=== PATIENT | male | born 1980 | race Caucasian/White ===

== ENCOUNTER 2016-11-26 17:31 | Emergency (ER) | payer OTHER ==
[~2016-11-26] VITALS: Wt 90.7 kg
[~2016-11-26 17:31] MED LIST: 'carisoprodol350 MG PO; ALBUTEROL0.09 MG/A2 INH; AMOXIL500 MG PO; ANAPROX DS550 MG PO; AUGMENTIN 875 M1 TAB PO; BACTRIM DS 8001 TA1 PO; BACTRIM DS 8001 TAB PO; BIAXIN500 MG PO; CELEXA20 MG PO; CIPROFLOXACIN500 MG PO; CLARITIN-D 24 H1 TAB PO; CLARITIN10 MG PO; CLEOCIN HCL150 MG PO; CLEOCIN150 MG PO; CLINDAMYCIN HC300 MG PO; CLINDAMYCIN150 MG PO; CLINDAMYCIN300 MG PO; CYMBALTA60 MG PO; DARVOCET N 1001 TAB PO; DAYPRO600 M1 PO; DICLOFENAC POTA50 MG PO; EES400 MG PO; FLEXERIL10 MG PO; FLOMAX0.4 MG PO; FLONASE0.05 MG/AC NS; HYDROCOD-HOMAT1 EACH PO; HYDROCODONE BIT1 T11 PO; K-Dur 20MEQ20 MEQ PO; KEFLEX500 MG PO; LEVAQUIN750 MG PO; LOMOTIL 0.025 M1 TA1 PO; MEDROL DOSEPAK4 MG PO; MOBIC7.5 MG PO; MOTRIN600 MG PO; MOTRIN800 MG PO; Motrin,Rufen800 MG PO; NAPROSYN500 MG PO; NORCO 325 MG-51 TAB PO; NORFLEX100 MG PO; PEPCID AC10 M2 PO; PEPCID20 MG PO; PERCOCET 325 MG1 TA2 PO; PHENERGAN W/ DE30 ML PO; PREDNICOT20 MG PO; PREDNISONE10 MG PO; PREDNISONE20 M1 PO; PREVACID30 M2 PO; PRILOSEC10 MG PO; PROVENTIL0.09 MG/AC IH; Peridex 473 ML473 ML PO; SINGULAIR10 MG PO; SOMA PO; SOMA350 MG PO; TESSALON PERLE100 M1 PO; TESSALON PERLE100 MG PO; TOBREX OPHTH S2.5 ML OPH; TRAMADOL HCL50 MG PO; TRIMOX500 MG PO; ULTRAM50 MG PO; VENTOLIN H0.09 MG/AC INH; VIBRAMYCIN100 MG PO; VICO10300 PO; VICO75300 PO; VICODIN 5-3001 EACH PO; VICODIN 5/500 505 MG PO; VOLTAREN50 M1 PO; ZANTAC 150150 MG PO; ZITHROMAX Z PA250 MG PO; ZITHROMAX250 MG PO; ZOFRAN ODT4 MG SL; ZOFRAN4 MG PO; ZYRTEC10 M3 PO; ZYRTEC10 MG PO; Zofran4 MG PO
== END 2016-11-26 18:27 | disposition home or self-care (01) ==
LOC: ED 17:31
DX: G89.29 Other chronic pain (principal); M25.511 Pain in right shoulder; Z88.0 Allergy status to penicillin; Z88.1 Allergy status to other antibiotic agents

== ENCOUNTER 2016-12-11 18:54 | Emergency (ER) | payer OTHER ==
[~2016-12-11] VITALS: Wt 93.0 kg
== END 2016-12-11 19:30 | disposition home or self-care (01) ==
LOC: ED 18:54
DX: G89.29 Other chronic pain (principal); M25.511 Pain in right shoulder; F17.200 Nicotine dependence, unspecified, uncomplicated; Z98.890 Other specified postprocedural states; Z90.89 Acquired absence of other organs; Z88.0 Allergy status to penicillin

== ENCOUNTER 2017-04-10 17:14 | Emergency (ER) | payer OTHER ==
[~2017-04-10] VITALS: Ht 182.8 cm; Wt 95.3 kg
[2017-04-10] MEDS ORDERED: Bactroban Oint22 GM T (17:24)
[2017-04-10] MEDS ORDERED: CLINDAMYCIN150 MG PO (17:24)
== END 2017-04-10 18:27 | disposition home or self-care (01) ==
LOC: ED 17:14
DX: L02.01 Cutaneous abscess of face (principal); R03.0 Elevated blood-pressure reading, without diagnosis of hypertension; Z88.0 Allergy status to penicillin; Z79.899 Other long term (current) drug therapy

== ENCOUNTER 2017-06-21 11:00 | Emergency (ER) | payer OTHER ==
[~2017-06-21] VITALS: Ht 182.8 cm; Wt 97.5 kg
[~2017-06-21 11:00] MED LIST changes: +Bactroban Oint22 GM T
[2017-06-21 11:45] LABS: BASO % 0.2 % (0.0-1.0); EOS # 0.1 10*3/uL (0.0-0.4); EOS % 0.9 % (1.0-4.0); HEMATOCRIT 45.6 % (42.0-52.0); HEMOGLOBIN 15.9 g/dl (14.0-18.0); LYMPH # 1.3 10*3/uL (1.3-4.4); LYMPH % 14.9 % (27.0-41.0); MEAN CELL VOLUME 91.9 fl (80.0-94.0); MEAN CORPUSCULAR HGB 32.1 pg (27.0-31.0); MEAN CORPUSCULAR HGB CONC 34.9 g/dl (33.0-37.0); MONO # 0.8 10*3/uL (0.1-1.0); MONO % 8.8 % (3.0-9.0); NEUT # 6.4 10*3/uL (2.3-7.9); NEUT % 74.8 % (47.0-73.0); PLATELET COUNT AUTOMATED 216 10*3/uL (130-400); RED BLOOD COUNT 4.96 10*6/uL (4.50-5.90); RED CELL DISTRI WIDTH 13.2 % (0-14.5); WHITE BLOOD COUNT 8.5 10*3/uL (4.8-10.8)
[2017-06-21 11:56] LABS: BUN 13 mg/dl (7-24); CHLORIDE 103 mmol/L (98-107); CREATININE 0.75 mg/dL (0.70-1.30); POTASSIUM 3.6 mmol/L (3.5-5.1); SODIUM 136 mmol/L (136-145)
[2017-06-21] MEDS ORDERED: ZOFRAN ODT4 MG SL (12:37)
[2017-06-21] MEDS ORDERED: IMODIUM A-D2 M2 PO (12:37)
== END 2017-06-21 13:34 | disposition home or self-care (01) ==
LOC: ED 11:00
PROVIDERS: Emergency Medicine
DX: K52.9 Noninfective gastroenteritis and colitis, unspecified (principal); F17.200 Nicotine dependence, unspecified, uncomplicated; G89.29 Other chronic pain; E66.3 Overweight; Z98.890 Other specified postprocedural states; Z87.442 Personal history of urinary calculi; Z68.29 Body mass index [BMI] 29.0-29.9, adult; Z90.89 Acquired absence of other organs; Z79.899 Other long term (current) drug therapy; Z88.0 Allergy status to penicillin

== ENCOUNTER 2017-07-04 16:05 | Emergency (ER) | payer OTHER ==
[~2017-07-04] VITALS: Ht 182.8 cm; Wt 97.5 kg
[~2017-07-04 16:05] MED LIST changes: +IMODIUM A-D2 M2 PO
[2017-07-04] MEDS ORDERED: DELTASONE20 M1 PO (17:36)
[2017-07-04] MEDS ORDERED: ZITHROMAX250 MG PO (17:36)
== END 2017-07-04 17:46 | disposition home or self-care (01) ==
LOC: ED 16:05
DX: J40 Bronchitis, not specified as acute or chronic (principal); F17.200 Nicotine dependence, unspecified, uncomplicated; Z98.890 Other specified postprocedural states; Z90.89 Acquired absence of other organs; Z79.899 Other long term (current) drug therapy; Z88.0 Allergy status to penicillin

== ENCOUNTER 2017-07-20 18:22 | Emergency (ER) | payer OTHER ==
[~2017-07-20] VITALS: Wt 97.5 kg
[~2017-07-20 18:22] MED LIST changes: +DELTASONE20 M1 PO
[2017-07-20] MEDS ORDERED: HYDROXYZINE HCL25 M1 PO (18:30)
[2017-07-20] MEDS ORDERED: CYCLOBENZAPRINE10 MG PO (18:30)
[2017-07-20] MEDS ORDERED: IBU800 M1 PO (18:30)
[2017-07-20] MEDS ORDERED: LORCET 5-325 M1 EACH PO (18:31)
[2017-07-20] MEDS ORDERED: ALL DAY ALLERGY10 MG PO (18:31)
[2017-07-20 19:03] LABS: BASO # 0.1 10*3/uL (0.0-0.1); BASO % 0.5 % (0.0-1.0); EOS # 0.2 10*3/uL (0.0-0.4); EOS % 1.7 % (1.0-4.0); HEMATOCRIT 43.7 % (42.0-52.0); HEMOGLOBIN 15.3 g/dl (14.0-18.0); LYMPH # 3.4 10*3/uL (1.3-4.4); LYMPH % 34.4 % (27.0-41.0); MEAN CELL VOLUME 92.4 fl (80.0-94.0); MEAN CORPUSCULAR HGB 32.3 pg (27.0-31.0); MONO # 0.5 10*3/uL (0.1-1.0); MONO % 5.3 % (3.0-9.0); NEUT # 5.8 10*3/uL (2.3-7.9); NEUT % 57.9 % (47.0-73.0); PLATELET COUNT AUTOMATED 177 10*3/uL (130-400); RED BLOOD COUNT 4.73 10*6/uL (4.50-5.90); RED CELL DISTRI WIDTH 12.7 % (0-14.5)
[2017-07-20] MEDS ORDERED: PREDNISONE10 MG PO (19:26)
[2017-07-20] MEDS ORDERED: FLONASE ALLERG9.9 ML NAS (19:26)
[2017-07-20] MEDS ORDERED: ROBITUSSIN DM 105 ML PO (19:26)
[2017-07-20 19:28] LABS: ALBUMIN 3.2 gm/dl (3.1-4.5); ALKALINE PHOSPHATASE 104 U/L (45-117); BUN 10 mg/dl (7-24); CHLORIDE 105 mmol/L (98-107); CREATININE 0.95 mg/dL (0.70-1.30); POTASSIUM 3.7 mmol/L (3.5-5.1); SGOT/AST 22 IU/L (3-35); SGPT/ALT 37 U/L (12-78); SODIUM 142 mmol/L (136-145); TOTAL PROTEIN 6.9 gm/dL (6.4-8.2); TROPONIN I < 0.015 ng/ml (<0.045)
== END 2017-07-20 20:26 | disposition home or self-care (01) ==
LOC: ED 18:22
PROVIDERS: Nurse Practitioner Family
DX: J20.9 Acute bronchitis, unspecified (principal); R03.0 Elevated blood-pressure reading, without diagnosis of hypertension; F17.200 Nicotine dependence, unspecified, uncomplicated; G89.29 Other chronic pain; E66.3 Overweight; Z68.29 Body mass index [BMI] 29.0-29.9, adult; Z98.890 Other specified postprocedural states; Z90.89 Acquired absence of other organs; Z79.899 Other long term (current) drug therapy; Z88.0 Allergy status to penicillin

== ENCOUNTER 2017-12-19 22:15 | Emergency (ER) | payer OTHER ==
[~2017-12-19] VITALS: Ht 182.8 cm; Wt 92.5 kg
[~2017-12-19 22:15] MED LIST changes: +ALL DAY ALLERGY10 MG PO; +CYCLOBENZAPRINE10 MG PO; +FLONASE ALLERG9.9 ML NAS; +HYDROXYZINE HCL25 M1 PO; +IBU800 M1 PO; +LORCET 5-325 M1 EACH PO; +ROBITUSSIN DM 105 ML PO
[2017-12-19] MEDS ORDERED: OMNICEF300 MG PO (23:54)
== END 2017-12-19 23:55 | disposition home or self-care (01) ==
LOC: ED 22:15
DX: J32.9 Chronic sinusitis, unspecified (principal); F17.200 Nicotine dependence, unspecified, uncomplicated; F32.9 Major depressive disorder, single episode, unspecified; G89.29 Other chronic pain; I10 Essential (primary) hypertension; Z88.0 Allergy status to penicillin

== ENCOUNTER 2017-12-25 18:16 | Emergency (ER) | payer OTHER ==
[~2017-12-25] VITALS: Ht 182.8 cm; Wt 92.5 kg
[~2017-12-25 18:16] MED LIST changes: +OMNICEF300 MG PO
[2017-12-25] MEDS ORDERED: FLONASE ALLERG9.9 ML NAS (18:26)
[2017-12-25] MEDS ORDERED: ALLEGRA-D 24 H1 EACH PO (18:26)
[2017-12-25] MEDS ORDERED: VIBRAMYCIN100 MG PO (18:26)
== END 2017-12-25 18:50 | disposition home or self-care (01) ==
LOC: ED 18:16
DX: J32.9 Chronic sinusitis, unspecified (principal); Z88.0 Allergy status to penicillin; Z79.899 Other long term (current) drug therapy; Z98.52 Vasectomy status

== ENCOUNTER 2018-02-16 23:15 | Emergency (ER) | payer OTHER ==
[~2018-02-16] VITALS: Ht 182.8 cm; Wt 93.0 kg
--- NOTE | ~2018-02-16 | EKG ---
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
[~2018-02-16 23:15] MED LIST changes: +ALLEGRA-D 24 H1 EACH PO
[2018-02-16 23:41] LABS: BASO # 0.1 10*3/uL (0.0-0.1); BASO % 0.3 % (0.0-1.0); EOS # 0.2 10*3/uL (0.0-0.4); EOS % 1.2 % (1.0-4.0); HEMATOCRIT 40.7 % (42.0-52.0); HEMOGLOBIN 13.7 g/dl (14.0-18.0); LYMPH # 4.8 10*3/uL (1.3-4.4); LYMPH % 29.3 % (27.0-41.0); MEAN CELL VOLUME 95.5 fl (80.0-94.0); MEAN CORPUSCULAR HGB 32.2 pg (27.0-31.0); MEAN CORPUSCULAR HGB CONC 33.7 g/dl (33.0-37.0); MEAN PLATELET VOLUME 11.5 fl (9.6-12.3); MONO # 1.5 10*3/uL (0.1-1.0); NEUT # 9.7 10*3/uL (2.3-7.9); NEUT % 59.8 % (47.0-73.0); PLATELET COUNT AUTOMATED 200 10*3/uL (130-400); RED BLOOD COUNT 4.26 10*6/uL (4.50-5.90); RED CELL DISTRI WIDTH 13.4 % (0-14.5); WHITE BLOOD COUNT 16.2 10*3/uL (4.8-10.8)
[2018-02-16 23:51] LABS: ACT PARTIAL THROMBO TIME 21.1 SECONDS (20.8-31.5)
[2018-02-16 23:57] LABS: ALBUMIN 3.4 gm/dl (3.1-4.5); ALKALINE PHOSPHATASE 81 U/L (45-117); BUN 19 mg/dl (7-24); CHLORIDE 104 mmol/L (98-107); CREATININE 0.92 mg/dL (0.70-1.30); POTASSIUM 3.7 mmol/L (3.5-5.1); SGOT/AST 22 IU/L (3-35); SGPT/ALT 42 U/L (12-78); SODIUM 140 mmol/L (136-145); TOTAL PROTEIN 6.6 gm/dL (6.4-8.2)
[2018-02-16 23:58] LABS: TROPONIN I < 0.015 ng/ml (<0.045)
[2018-02-17] MEDS ORDERED: PEPCID40 MG PO (00:43)
== END 2018-02-17 00:47 | disposition home or self-care (01) ==
LOC: ED 23:15
PROVIDERS: Emergency Medicine
DX: R07.9 Chest pain, unspecified (principal); K20.9 Esophagitis, unspecified; R42 Dizziness and giddiness; Z88.0 Allergy status to penicillin; Z79.899 Other long term (current) drug therapy

== ENCOUNTER 2018-02-19 21:09 | Emergency (ER) | payer OTHER ==
[~2018-02-19] VITALS: Wt 93.0 kg
[~2018-02-19 21:09] MED LIST changes: +PEPCID40 MG PO
[2018-02-19] MEDS ORDERED: CLINDAMYCIN HC300 MG PO (21:58)
[2018-02-19] MEDS ORDERED: NORCO 5-325 TA1 EACH PO (21:58)
== END 2018-02-19 22:09 | disposition home or self-care (01) ==
LOC: ED 21:09
DX: K61.0 Anal abscess (principal); F17.200 Nicotine dependence, unspecified, uncomplicated; Z79.899 Other long term (current) drug therapy; Z88.0 Allergy status to penicillin

== ENCOUNTER 2018-05-21 18:43 | Emergency (ER) | payer OTHER ==
[~2018-05-21] VITALS: Ht 182.8 cm; Wt 89.8 kg
[~2018-05-21 18:43] MED LIST changes: +NORCO 5-325 TA1 EACH PO
[2018-05-21] MEDS ORDERED: Motrin,Rufen800 MG PO (19:06)
== END 2018-05-21 19:16 | disposition home or self-care (01) ==
LOC: ED 18:43
DX: T23.202A Burn of second degree of left hand, unspecified site, initial encounter (principal); F17.200 Nicotine dependence, unspecified, uncomplicated; Z79.899 Other long term (current) drug therapy; Z88.0 Allergy status to penicillin; X19.XXXA Contact with other heat and hot substances, initial encounter; Y93.89 Activity, other specified; Y92.89 Other specified places as the place of occurrence of the external cause; Y99.8 Other external cause status

== ENCOUNTER 2018-07-16 21:35 | Emergency (ER) | payer OTHER ==
[~2018-07-16] VITALS: Ht 182.8 cm; Wt 95.3 kg
[2018-07-16] MEDS ORDERED: KENALOG 0.1%80 GM T (22:13)
[2018-07-16] MEDS ORDERED: PREDNISONE10 MG PO (22:13)
[2018-07-16] MEDS ORDERED: ATARAX,VISTARIL50 MG PO (22:13)
[2018-07-20] MEDS ORDERED: IBU800 MG PO (19:55)
== END 2018-07-16 22:43 | disposition home or self-care (01) ==
LOC: ED 21:35
DX: L25.3 Unspecified contact dermatitis due to other chemical products (principal); G89.29 Other chronic pain; F17.200 Nicotine dependence, unspecified, uncomplicated; Z88.0 Allergy status to penicillin; Z79.2 Long term (current) use of antibiotics; Z79.899 Other long term (current) drug therapy

== ENCOUNTER 2018-11-25 09:50 | Emergency (ER) | payer OTHER ==
[~2018-11-25] VITALS: Ht 182.8 cm; Wt 95.3 kg
--- NOTE | ~2018-11-25 | EKG ---
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
[~2018-11-25 09:50] MED LIST changes: +ATARAX,VISTARIL50 MG PO; +IBU800 MG PO; +KENALOG 0.1%80 GM T
[2018-11-25 10:12] LABS: BASO # 0.1 10*3/uL (0.0-0.1); BASO % 0.6 % (0.0-1.0); EOS # 0.2 10*3/uL (0.0-0.4); EOS % 2.2 % (1.0-4.0); HEMATOCRIT 42.3 % (42.0-52.0); HEMOGLOBIN 14.4 g/dl (14.0-18.0); LYMPH % 29.5 % (27.0-41.0); MEAN CELL VOLUME 95.9 fl (80.0-94.0); MEAN CORPUSCULAR HGB 32.7 pg (27.0-31.0); MEAN PLATELET VOLUME 11.4 fl (9.6-12.3); MONO # 0.9 10*3/uL (0.1-1.0); MONO % 8.5 % (3.0-9.0); NEUT # 5.9 10*3/uL (2.3-7.9); PLATELET COUNT AUTOMATED 207 10*3/uL (130-400); RED BLOOD COUNT 4.41 10*6/uL (4.50-5.90); RED CELL DISTRI WIDTH 12.9 % (0-14.5)
[2018-11-25 10:21] LABS: ACT PARTIAL THROMBO TIME 23.6 SECONDS (20.8-31.5)
[2018-11-25 10:29] LABS: ALBUMIN 3.6 gm/dl (3.1-4.5); ALKALINE PHOSPHATASE 100 U/L (45-117); BUN 12 mg/dl (7-24); CHLORIDE 107 mmol/L (98-107); POTASSIUM 3.8 mmol/L (3.5-5.1); SGOT/AST 24 IU/L (3-35); SGPT/ALT 25 U/L (12-78); SODIUM 137 mmol/L (136-145); TOTAL PROTEIN 7.3 gm/dL (6.4-8.2)
[2018-11-25 10:30] LABS: TROPONIN I < 0.015 ng/ml (<0.045)
[2018-11-25] MEDS ORDERED: ZITHROMAX250 MG PO (13:19)
[2018-11-25] MEDS ORDERED: PREDNISONE50 MG PO (13:19)
[2019-01-01] MEDS ORDERED: FLONASE ALLERG9.9 ML NAS (19:37)
[2019-01-01] MEDS ORDERED: ZITHROMAX250 MG PO (19:37)
[2019-01-01] MEDS ORDERED: ZYRTEC10 MG PO (19:37)
== END 2018-11-25 13:29 | disposition home or self-care (01) ==
LOC: ED 09:50
PROVIDERS: Emergency Medicine
DX: J20.9 Acute bronchitis, unspecified (principal); G89.29 Other chronic pain; F17.200 Nicotine dependence, unspecified, uncomplicated; Z87.442 Personal history of urinary calculi; Z88.0 Allergy status to penicillin; Z79.899 Other long term (current) drug therapy; Z79.82 Long term (current) use of aspirin

== ENCOUNTER 2018-11-27 17:35 | Emergency (ER) | payer OTHER ==
[~2018-11-27] VITALS: Ht 182.8 cm; Wt 95.3 kg
[~2018-11-27 17:35] MED LIST changes: +PREDNISONE50 MG PO
[2018-11-27] MEDS ORDERED: IBUPROFEN600 MG PO (18:25)
[2018-11-27] MEDS ORDERED: CIPRO500 MG PO (18:25)
[2019-01-01] MEDS ORDERED: FLONASE ALLERG9.9 ML NAS (19:37)
[2019-01-01] MEDS ORDERED: ZITHROMAX250 MG PO (19:37)
[2019-01-01] MEDS ORDERED: ZYRTEC10 MG PO (19:37)
== END 2018-11-27 20:05 | disposition home or self-care (01) ==
LOC: ED 17:35
DX: S91.332A Puncture wound without foreign body, left foot, initial encounter (principal); F17.200 Nicotine dependence, unspecified, uncomplicated; Z88.0 Allergy status to penicillin; Z79.899 Other long term (current) drug therapy; W22.8XXA Striking against or struck by other objects, initial encounter; Y93.89 Activity, other specified; Y92.69 Other specified industrial and construction area as the place of occurrence of the external cause; Y99.0 Civilian activity done for income or pay

== ENCOUNTER 2019-02-06 20:44 | Emergency (ER) | payer OTHER ==
[~2019-02-06] VITALS: Wt 94.6 kg
--- NOTE | ~2019-02-06 | EKG ---
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
[~2019-02-06 20:44] MED LIST changes: +CIPRO500 MG PO; +IBUPROFEN600 MG PO
[2019-02-06 21:00] LABS: BASO # 0.1 10*3/uL (0.0-0.1); BASO % 0.5 % (0.0-1.0); EOS # 0.3 10*3/uL (0.0-0.4); EOS % 3.3 % (1.0-4.0); HEMATOCRIT 41.5 % (42.0-52.0); LYMPH # 3.4 10*3/uL (1.3-4.4); LYMPH % 32.8 % (27.0-41.0); MEAN CORPUSCULAR HGB 32.7 pg (27.0-31.0); MEAN CORPUSCULAR HGB CONC 33.7 g/dl (33.0-37.0); MEAN PLATELET VOLUME 11.9 fl (9.6-12.3); MONO # 0.6 10*3/uL (0.1-1.0); MONO % 6.1 % (3.0-9.0); NEUT # 5.8 10*3/uL (2.3-7.9); PLATELET COUNT AUTOMATED 177 10*3/uL (130-400); RED BLOOD COUNT 4.28 10*6/uL (4.50-5.90); RED CELL DISTRI WIDTH 13.1 % (0-14.5); WHITE BLOOD COUNT 10.2 10*3/uL (4.8-10.8)
[2019-02-06 21:11] LABS: ACT PARTIAL THROMBO TIME 24.7 SECONDS (20.0-32.1); INTERNATIONAL NORM RATIO 0.9 (2.0-3.5)
[2019-02-06 21:17] LABS: ALBUMIN 3.2 gm/dl (3.1-4.5); ALKALINE PHOSPHATASE 79 U/L (45-117); BUN 11 mg/dl (7-24); CHLORIDE 109 mmol/L (98-107); CREATININE 1.05 mg/dL (0.70-1.30); POTASSIUM 3.7 mmol/L (3.5-5.1); SGOT/AST 24 IU/L (3-35); SGPT/ALT 25 U/L (12-78); SODIUM 143 mmol/L (136-145); TOTAL PROTEIN 6.5 gm/dL (6.4-8.2)
[2019-02-06 21:18] LABS: TROPONIN I < 0.015 ng/ml (<0.045)
== END 2019-02-06 21:44 | disposition home or self-care (01) ==
LOC: ED 20:44
PROVIDERS: Student in an Organized Health Care Education/Training Program
DX: R07.89 Other chest pain (principal); F17.200 Nicotine dependence, unspecified, uncomplicated; Z79.899 Other long term (current) drug therapy; Z88.0 Allergy status to penicillin

== ENCOUNTER 2019-02-28 10:45 | Emergency (ER) | payer OTHER ==
[~2019-02-28] VITALS: Ht 182.8 cm; Wt 95.3 kg
[2019-02-28] MEDS ORDERED: NORCO 5-325 TA1 EACH PO (10:50)
[2019-02-28] MEDS ORDERED: ANTIBIOTIC28.4 GM T (11:16)
[2019-02-28] MEDS ORDERED: CEPHALEXIN500 M1 PO (11:16)
[2019-02-28] MEDS ORDERED: SEPTDS PO (11:16)
== END 2019-02-28 11:21 | disposition home or self-care (01) ==
LOC: ED 10:45
DX: L03.011 Cellulitis of right finger (principal); F17.200 Nicotine dependence, unspecified, uncomplicated; Z88.0 Allergy status to penicillin; Z79.899 Other long term (current) drug therapy

== ENCOUNTER 2019-06-02 16:24 | Emergency (ER) | payer BC, OTHER ==
[~2019-06-02] VITALS: Ht 182.8 cm; Wt 95.3 kg
--- NOTE | ~2019-06-02 | EKG ---
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
--- NOTE | ~2019-06-02 | EKG ---
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
--- NOTE | ~2019-06-02 | EKG ---
[place], [place] ELECTROCARDIOGRAM REPORT NAME: AINSLEY POLANCO UNIT #: [id number] ROOM: DOCTOR: EPIPHANY DRAFT REPORT BIRTHDATE: [birth year] [facility] Test Date: 2019-06-02 Test Time: 18:47:29 Pat Name: AINSLEY POLANCO Department: Room: Gender: Dehairer: : 1980 Requested By: ALEXANDER ALARCON Order Number: [id number] Reading MD: Calvin Angela MD Measurements Intervals [place] Rate: 62 P: 72 [place]: 172 QRS: 72 QRSD: 96 T: 67 QT: 414 QTc: 421 Interpretive Statements Sinus rhythm Compared to ECG 02/06/2019 20:50:48 No significant changes Electronically Signed On 06-04-2019 15:28:46 PDT by Calvin Angela MD CM:EKGRPT:ELECTROCARDIOGRAM REPORT [id number] [id number] ALEXANDER MIDDLETON DRAFT REPORT ALEXANDER ALARCON M.D.
[~2019-06-02 16:24] MED LIST changes: +ANTIBIOTIC28.4 GM T; +CEPHALEXIN500 M1 PO; +SEPTDS PO
[2019-06-02 16:49] LABS: BASO # 0.1 10*3/uL (0.0-0.1); BASO % 0.6 % (0.0-1.0); EOS # 0.2 10*3/uL (0.0-0.4); EOS % 2.7 % (1.0-4.0); HEMATOCRIT 40.3 % (42.0-52.0); HEMOGLOBIN 14.1 g/dl (14.0-18.0); LYMPH # 2.8 10*3/uL (1.3-4.4); LYMPH % 32.3 % (27.0-41.0); MEAN CELL VOLUME 95.3 fl (80.0-94.0); MEAN CORPUSCULAR HGB 33.3 pg (27.0-31.0); MEAN PLATELET VOLUME 11.3 fl (9.6-12.3); MONO # 0.7 10*3/uL (0.1-1.0); MONO % 7.4 % (3.0-9.0); NEUT % 56.8 % (47.0-73.0); PLATELET COUNT AUTOMATED 201 10*3/uL (130-400); RED BLOOD COUNT 4.23 10*6/uL (4.50-5.90); RED CELL DISTRI WIDTH 12.9 % (0-14.5); WHITE BLOOD COUNT 8.8 10*3/uL (4.8-10.8)
[2019-06-02 17:07] LABS: ACT PARTIAL THROMBO TIME 26.1 SECONDS (20.0-32.1); INTERNATIONAL NORM RATIO 0.9 (2.0-3.5)
[2019-06-02 17:18] LABS: ALBUMIN 3.5 gm/dl (3.1-4.5); ALKALINE PHOSPHATASE 76 U/L (45-117); BUN 6 mg/dl (7-24); CHLORIDE 107 mmol/L (98-107); CREATININE 0.89 mg/dL (0.70-1.30); POTASSIUM 3.4 mmol/L (3.5-5.1); SGOT/AST 22 IU/L (3-35); SGPT/ALT 25 U/L (12-78); SODIUM 138 mmol/L (136-145); TOTAL PROTEIN 7.1 gm/dL (6.4-8.2)
[2019-06-02 17:20] LABS: TROPONIN I < 0.015 ng/ml (<0.045)
[2019-06-02] MEDS ORDERED: PREDNISONE20 M1 PO (21:18)
[2019-06-02] MEDS ORDERED: AVPAK AZITHROM250 M1 PO (21:18)
[2019-06-02] MEDS ORDERED: VENT7GM INH (21:18)
== END 2019-06-02 21:17 | disposition home or self-care (01) ==
LOC: ED 16:24
PROVIDERS: Emergency Medicine
DX: J20.9 Acute bronchitis, unspecified (principal); M19.90 Unspecified osteoarthritis, unspecified site; F17.200 Nicotine dependence, unspecified, uncomplicated; Z88.0 Allergy status to penicillin; Z79.899 Other long term (current) drug therapy

== ENCOUNTER 2019-10-10 09:38 | Emergency (ER) | payer BC ==
[~2019-10-10] VITALS: Ht 182.8 cm; Wt 95.3 kg
[~2019-10-10 09:38] MED LIST changes: +AVPAK AZITHROM250 M1 PO; +VENT7GM INH
[2019-10-10] MEDS ORDERED: MEDROL DOSEPAK4 MG PO (10:34)
[2019-10-10] MEDS ORDERED: KENALOG 0.1%80 GM T (10:34)
[2019-10-10] MEDS ORDERED: BENADRYL25 M2 PO (10:34)
== END 2019-10-10 10:42 | disposition home or self-care (01) ==
LOC: ED 09:38
DX: L30.9 Dermatitis, unspecified (principal); M19.90 Unspecified osteoarthritis, unspecified site; F32.9 Major depressive disorder, single episode, unspecified; Z88.0 Allergy status to penicillin; Z79.899 Other long term (current) drug therapy; Z79.2 Long term (current) use of antibiotics; Z87.891 Personal history of nicotine dependence

== ENCOUNTER 2019-10-13 17:55 | Emergency (ER) | payer BC ==
[~2019-10-13] VITALS: Ht 182.8 cm; Wt 95.3 kg
[~2019-10-13 17:55] MED LIST changes: +BENADRYL25 M2 PO
[2019-10-13] MEDS ORDERED: SEPTDS PO (19:34)
== END 2019-10-13 19:54 | disposition home or self-care (01) ==
LOC: ED 17:55
DX: Z48.00 Encounter for change or removal of nonsurgical wound dressing (principal); M19.90 Unspecified osteoarthritis, unspecified site; F32.9 Major depressive disorder, single episode, unspecified; Z88.0 Allergy status to penicillin; Z79.899 Other long term (current) drug therapy; Z79.2 Long term (current) use of antibiotics

== ENCOUNTER 2019-11-10 08:07 | Emergency (ER) | payer BC ==
[~2019-11-10] VITALS: Ht 182.8 cm; Wt 95.3 kg
[2019-11-10 08:49] LABS: BASO # 0.1 10*3/uL (0.0-0.1); BASO % 0.9 % (0.0-1.0); EOS # 0.2 10*3/uL (0.0-0.4); EOS % 3.5 % (1.0-4.0); HEMATOCRIT 39.7 % (42.0-52.0); HEMOGLOBIN 13.8 g/dl (14.0-18.0); LYMPH # 2.6 10*3/uL (1.3-4.4); LYMPH % 41.5 % (27.0-41.0); MEAN CELL VOLUME 94.3 fl (80.0-94.0); MEAN CORPUSCULAR HGB 32.8 pg (27.0-31.0); MEAN CORPUSCULAR HGB CONC 34.8 g/dl (33.0-37.0); MEAN PLATELET VOLUME 11.1 fl (9.6-12.3); MONO # 0.7 10*3/uL (0.1-1.0); MONO % 10.9 % (3.0-9.0); NEUT # 2.7 10*3/uL (2.3-7.9); PLATELET COUNT AUTOMATED 207 10*3/uL (130-400); RED BLOOD COUNT 4.21 10*6/uL (4.50-5.90); RED CELL DISTRI WIDTH 12.7 % (0-14.5); WHITE BLOOD COUNT 6.3 10*3/uL (4.8-10.8)
[2019-11-10] MEDS ORDERED: CITALOPRAM HYDR40 MG PO (08:54)
[2019-11-10] MEDS ORDERED: CITALOPRAM HYDR10 MG PO (08:56)
[2019-11-10 09:03] LABS: ALBUMIN 3.8 gm/dl (3.1-4.5); ALKALINE PHOSPHATASE 71 U/L (45-117); BUN 15 mg/dl (7-24); CHLORIDE 107 mmol/L (98-107); CREATININE 0.78 mg/dL (0.70-1.30); POTASSIUM 3.7 mmol/L (3.5-5.1); SGOT/AST 21 IU/L (3-35); SGPT/ALT 29 U/L (12-78); SODIUM 138 mmol/L (136-145); TOTAL PROTEIN 6.9 gm/dL (6.4-8.2)
[2019-11-10 09:04] LABS: TROPONIN I < 0.015 ng/ml (<0.045)
== END 2019-11-10 09:31 | disposition home or self-care (01) ==
LOC: ED 08:07
PROVIDERS: Emergency Medicine
DX: R07.89 Other chest pain (principal); R06.02 Shortness of breath; F32.9 Major depressive disorder, single episode, unspecified; K21.9 Gastro-esophageal reflux disease without esophagitis; M19.90 Unspecified osteoarthritis, unspecified site; Z88.0 Allergy status to penicillin; Z79.899 Other long term (current) drug therapy; Z79.2 Long term (current) use of antibiotics; Z87.891 Personal history of nicotine dependence

== ENCOUNTER 2020-04-03 16:01 | Emergency (ER) | payer BC, OTHER ==
[~2020-04-03] VITALS: Ht 182.8 cm; Wt 95.3 kg
[~2020-04-03 16:01] MED LIST changes: +CITALOPRAM HYDR10 MG PO; +CITALOPRAM HYDR40 MG PO
[2020-04-03] MEDS ORDERED: SEPTDS PO (16:24)
[2020-04-03] MEDS ORDERED: CEPHALEXIN500 M1 PO (16:24)
== END 2020-04-03 16:28 | disposition home or self-care (01) ==
LOC: ED 16:01
DX: L03.116 Cellulitis of left lower limb (principal); F17.200 Nicotine dependence, unspecified, uncomplicated; Z88.0 Allergy status to penicillin; Z79.899 Other long term (current) drug therapy

== ENCOUNTER 2020-05-31 14:07 | Emergency (ER) | payer BC, OTHER ==
[~2020-05-31] VITALS: Ht 182.8 cm; Wt 95.3 kg
[2020-05-31] MEDS ORDERED: PREDNISONE50 MG PO (15:57)
[2020-05-31] MEDS ORDERED: ZITHROMAX250 MG PO (15:57)
== END 2020-05-31 16:14 | disposition home or self-care (01) ==
LOC: ED 14:07
DX: J20.9 Acute bronchitis, unspecified (principal); Z88.0 Allergy status to penicillin; Z79.899 Other long term (current) drug therapy

== ENCOUNTER 2020-06-12 15:33 | Emergency (ER) | payer BC, OTHER ==
[~2020-06-12] VITALS: Ht 180.3 cm; Wt 99.8 kg
[2020-06-12 16:17] LABS: BILIRUBIN Negative (Negative); BLOOD 3+ (Negative); CLARITY Clear (Clear); COLOR Yellow (Yellow); GLUCOSE Negative (Negative); KETONE Negative (Negative); LEUKO ESTERASE Negative (Negative); NITRITE Negative (Negative); PH 6.5 (4.5-8.0); SPECIFIC GRAVITY 1.015 (1.001-1.030)
[2020-06-12 16:34] LABS: BACTERIA TRACE; EPITHELIAL CELLS 0-2; MUCOUS TRACE; RBC 41-50 rbc/hpf (0-2); WBC 0-2 wbc/hpf (0-5)
[2020-06-12 16:59] LABS: BASO % 0.4 % (0.0-1.0); EOS # 0.1 10*3/uL (0.0-0.4); EOS % 0.8 % (1.0-4.0); HEMATOCRIT 42.6 % (42.0-52.0); LYMPH # 2.7 10*3/uL (1.3-4.4); LYMPH % 26.6 % (27.0-41.0); MEAN CELL VOLUME 91.6 fl (80.0-94.0); MEAN CORPUSCULAR HGB 31.4 pg (27.0-31.0); MEAN CORPUSCULAR HGB CONC 34.3 g/dl (33.0-37.0); MEAN PLATELET VOLUME 10.9 fl (9.6-12.3); MONO # 0.8 10*3/uL (0.1-1.0); MONO % 7.4 % (3.0-9.0); NEUT # 6.6 10*3/uL (2.3-7.9); NEUT % 64.5 % (47.0-73.0); PLATELET COUNT AUTOMATED 234 10*3/uL (130-400); RED BLOOD COUNT 4.65 10*6/uL (4.50-5.90); RED CELL DISTRI WIDTH 12.5 % (0-14.5); WHITE BLOOD COUNT 10.3 10*3/uL (4.8-10.8)
[2020-06-12 17:13] LABS: ALBUMIN 3.5 gm/dl (3.1-4.5); ALKALINE PHOSPHATASE 83 U/L (45-117); BUN 10 mg/dl (7-24); CHLORIDE 107 mmol/L (98-107); CREATININE 0.81 mg/dL (0.70-1.30); LIPASE 120 U/L (73-393); POTASSIUM 4.1 mmol/L (3.5-5.1); SGOT/AST 25 IU/L (3-35); SGPT/ALT 29 U/L (12-78); SODIUM 141 mmol/L (136-145); TOTAL PROTEIN 7.4 gm/dL (6.4-8.2)
[2020-06-12] MEDS ORDERED: NORCO 5-325 TA1 EACH PO (19:19)
[2020-06-12] MEDS ORDERED: SEPTDS PO (19:19)
== END 2020-06-12 19:18 | disposition home or self-care (01) ==
LOC: ED 15:33
PROVIDERS: Emergency Medicine; Physician Assistant
DX: N13.2 Hydronephrosis with renal and ureteral calculous obstruction (principal); Z88.0 Allergy status to penicillin; Z79.899 Other long term (current) drug therapy; Z87.891 Personal history of nicotine dependence

== ENCOUNTER 2020-10-12 20:45 | Emergency (ER) | payer BC, OTHER ==
[~2020-10-12] VITALS: Ht 175.2 cm; Wt 97.5 kg
[2020-10-12 21:51] LABS: BASO % 0.4 % (0.0-1.0); EOS # 0.3 10*3/uL (0.0-0.4); EOS % 3.8 % (1.0-4.0); HEMATOCRIT 41.5 % (42.0-52.0); LYMPH # 3.1 10*3/uL (1.3-4.4); LYMPH % 39.6 % (27.0-41.0); MEAN CORPUSCULAR HGB 31.8 pg (27.0-31.0); MEAN CORPUSCULAR HGB CONC 34.2 g/dl (33.0-37.0); MEAN PLATELET VOLUME 10.9 fl (9.6-12.3); MONO # 0.8 10*3/uL (0.1-1.0); MONO % 10.2 % (3.0-9.0); NEUT # 3.6 10*3/uL (2.3-7.9); NEUT % 45.9 % (47.0-73.0); PLATELET COUNT AUTOMATED 250 10*3/uL (130-400); RED BLOOD COUNT 4.46 10*6/uL (4.50-5.90); RED CELL DISTRI WIDTH 12.8 % (0-14.5); WHITE BLOOD COUNT 7.9 10*3/uL (4.8-10.8)
[2020-10-12 21:59] LABS: BILIRUBIN 1+ (Negative); BLOOD Negative (Negative); CLARITY Clear (Clear); COLOR Dark Yellow (Yellow); GLUCOSE Negative (Negative); KETONE Trace (Negative); LEUKO ESTERASE Negative (Negative); NITRITE Negative (Negative); PH 5.5 (4.5-8.0)
[2020-10-12 22:04] LABS: BACTERIA TRACE; EPITHELIAL CELLS 0-2; RBC 0-2 rbc/hpf (0-2); WBC 0-2 wbc/hpf (0-5)
[2020-10-12 22:07] LABS: ALBUMIN 3.4 gm/dl (3.1-4.5); ALKALINE PHOSPHATASE 83 U/L (45-117); BUN 10 mg/dl (7-24); CHLORIDE 111 mmol/L (98-107); CREATININE 0.88 mg/dL (0.70-1.30); LIPASE 140 U/L (73-393); POTASSIUM 3.6 mmol/L (3.5-5.1); SGOT/AST 17 IU/L (3-35); SGPT/ALT 30 U/L (12-78); SODIUM 143 mmol/L (136-145); TOTAL PROTEIN 6.8 gm/dL (6.4-8.2)
== END 2020-10-12 22:56 | disposition home or self-care (01) ==
LOC: ED 20:45
PROVIDERS: Student in an Organized Health Care Education/Training Program
DX: N20.0 Calculus of kidney (principal); F32.9 Major depressive disorder, single episode, unspecified; Z88.0 Allergy status to penicillin; Z79.899 Other long term (current) drug therapy; Z98.890 Other specified postprocedural states

== ENCOUNTER 2020-11-15 15:31 | Emergency (ER) | payer BC, OTHER ==
[~2020-11-15] VITALS: Ht 180.3 cm; Wt 95.3 kg
[2020-11-15 16:27] LABS: BASO # 0.1 10*3/uL (0.0-0.1); BASO % 0.6 % (0.0-1.0); EOS # 0.3 10*3/uL (0.0-0.4); EOS % 4.2 % (1.0-4.0); HEMATOCRIT 39.4 % (42.0-52.0); LYMPH # 2.8 10*3/uL (1.3-4.4); LYMPH % 35.6 % (27.0-41.0); MEAN CELL VOLUME 93.4 fl (80.0-94.0); MEAN CORPUSCULAR HGB 32.2 pg (27.0-31.0); MEAN CORPUSCULAR HGB CONC 34.5 g/dl (33.0-37.0); MEAN PLATELET VOLUME 11.5 fl (9.6-12.3); MONO # 0.7 10*3/uL (0.1-1.0); MONO % 8.2 % (3.0-9.0); NEUT # 4.1 10*3/uL (2.3-7.9); NEUT % 51.3 % (47.0-73.0); PLATELET COUNT AUTOMATED 194 10*3/uL (130-400); RED BLOOD COUNT 4.22 10*6/uL (4.50-5.90); RED CELL DISTRI WIDTH 12.5 % (0-14.5); WHITE BLOOD COUNT 7.9 10*3/uL (4.8-10.8)
[2020-11-15 16:41] LABS: ACT PARTIAL THROMBO TIME 26.7 SECONDS (20.0-32.1)
[2020-11-15 16:42] LABS: ALBUMIN 3.5 gm/dl (3.1-4.5); ALKALINE PHOSPHATASE 84 U/L (45-117); BUN 9 mg/dl (7-24); CHLORIDE 105 mmol/L (98-107); LIPASE 109 U/L (73-393); POTASSIUM 3.7 mmol/L (3.5-5.1); SGOT/AST 20 IU/L (3-35); SGPT/ALT 27 U/L (12-78); SODIUM 138 mmol/L (136-145); TOTAL PROTEIN 6.8 gm/dL (6.4-8.2); TROPONIN I < 0.015 ng/ml (<0.045)
[2020-11-15] MEDS ORDERED: PREDNISONE50 MG PO (18:51)
[2020-11-15] MEDS ORDERED: ZITHROMAX250 MG PO (18:51)
== END 2020-11-15 19:10 | disposition home or self-care (01) ==
LOC: ED 15:31
PROVIDERS: Emergency Medicine
DX: J20.9 Acute bronchitis, unspecified (principal); Z20.822 Contact with and (suspected) exposure to COVID-19; Z88.0 Allergy status to penicillin; Z79.899 Other long term (current) drug therapy; Z98.890 Other specified postprocedural states

== ENCOUNTER 2020-11-18 21:03 | Emergency (ER) | payer BC, OTHER ==
[~2020-11-18] VITALS: Ht 180.3 cm; Wt 1.2 kg
[2020-11-18 21:49] LABS: BASO % 0.2 % (0.0-1.0); EOS # 0.1 10*3/uL (0.0-0.4); EOS % 0.5 % (1.0-4.0); HEMATOCRIT 41.5 % (42.0-52.0); LYMPH # 3.6 10*3/uL (1.3-4.4); LYMPH % 28.3 % (27.0-41.0); MEAN CELL VOLUME 94.1 fl (80.0-94.0); MEAN CORPUSCULAR HGB 32.2 pg (27.0-31.0); MEAN CORPUSCULAR HGB CONC 34.2 g/dl (33.0-37.0); MEAN PLATELET VOLUME 11.7 fl (9.6-12.3); MONO % 8.2 % (3.0-9.0); NEUT # 7.9 10*3/uL (2.3-7.9); NEUT % 62.4 % (47.0-73.0); PLATELET COUNT AUTOMATED 232 10*3/uL (130-400); RED BLOOD COUNT 4.41 10*6/uL (4.50-5.90); RED CELL DISTRI WIDTH 13.2 % (0-14.5); WHITE BLOOD COUNT 12.7 10*3/uL (4.8-10.8)
[2020-11-18 22:23] LABS: ALBUMIN 3.3 gm/dl (3.1-4.5); ALKALINE PHOSPHATASE 81 U/L (45-117); BUN 12 mg/dl (7-24); CHLORIDE 111 mmol/L (98-107); CREATININE 0.86 mg/dL (0.70-1.30); LIPASE 189 U/L (73-393); POTASSIUM 3.6 mmol/L (3.5-5.1); SGOT/AST 19 IU/L (3-35); SGPT/ALT 30 U/L (12-78); SODIUM 141 mmol/L (136-145)
[2020-11-19] MEDS ORDERED: FLAGYL500 MG PO (00:58)
[2020-11-19] MEDS ORDERED: CIPRO500 MG PO (00:58)
== END 2020-11-19 01:50 | disposition home or self-care (01) ==
LOC: ED 21:03
PROVIDERS: Physician Assistant
DX: K57.92 Diverticulitis of intestine, part unspecified, without perforation or abscess without bleeding (principal); D72.829 Elevated white blood cell count, unspecified; R10.9 Unspecified abdominal pain; Z88.0 Allergy status to penicillin; Z79.899 Other long term (current) drug therapy; Z98.890 Other specified postprocedural states

== ENCOUNTER 2021-03-30 07:41 | Emergency (ER) | payer BC, OTHER ==
[~2021-03-30] VITALS: Ht 182.8 cm; Wt 97.5 kg
[~2021-03-30 07:41] MED LIST changes: +FLAGYL500 MG PO
[2021-03-30 08:38] LABS: BASO % 0.3 % (0.0-1.0); EOS # 0.2 10*3/uL (0.0-0.4); EOS % 1.9 % (1.0-4.0); HEMATOCRIT 42.1 % (42.0-52.0); LYMPH # 1.8 10*3/uL (1.3-4.4); LYMPH % 18.5 % (27.0-41.0); MEAN CELL VOLUME 92.3 fl (80.0-94.0); MEAN CORPUSCULAR HGB CONC 34.7 g/dl (33.0-37.0); MEAN PLATELET VOLUME 11.6 fl (9.6-12.3); MONO # 0.8 10*3/uL (0.1-1.0); MONO % 7.9 % (3.0-9.0); NEUT # 6.9 10*3/uL (2.3-7.9); NEUT % 71.2 % (47.0-73.0); PLATELET COUNT AUTOMATED 201 10*3/uL (130-400); RED BLOOD COUNT 4.56 10*6/uL (4.50-5.90); RED CELL DISTRI WIDTH 12.3 % (0-14.5); WHITE BLOOD COUNT 9.7 10*3/uL (4.8-10.8)
[2021-03-30 08:41] LABS: BILIRUBIN Negative (Negative); BLOOD 3+ (Negative); CLARITY Clear (Clear); COLOR Yellow (Yellow); GLUCOSE Negative (Negative); KETONE Negative (Negative); LEUKO ESTERASE Negative (Negative); NITRITE Negative (Negative)
[2021-03-30 08:54] LABS: ALBUMIN 3.7 gm/dl (3.1-4.5); ALKALINE PHOSPHATASE 95 U/L (45-117); BUN 13 mg/dl (7-24); CHLORIDE 108 mmol/L (98-107); CREATININE 0.89 mg/dL (0.70-1.30); POTASSIUM 4.2 mmol/L (3.5-5.1); SGOT/AST 17 IU/L (3-35); SGPT/ALT 26 U/L (12-78); SODIUM 138 mmol/L (136-145); TOTAL PROTEIN 7.5 gm/dL (6.4-8.2)
[2021-03-30 08:59] LABS: RBC TNTC rbc/hpf (0-2)
[2021-03-30] MEDS ORDERED: HYDROCODONE-AC1 EAC1 PO (10:34)
== END 2021-03-30 10:51 | disposition home or self-care (01) ==
LOC: ED 07:41
PROVIDERS: Student in an Organized Health Care Education/Training Program
DX: N20.0 Calculus of kidney (principal); Z88.0 Allergy status to penicillin; Z79.899 Other long term (current) drug therapy

== ENCOUNTER 2021-04-11 19:19 | Emergency (ER) | payer BC, OTHER ==
[~2021-04-11] VITALS: Ht 182.8 cm; Wt 98.9 kg
[~2021-04-11 19:19] MED LIST changes: +HYDROCODONE-AC1 EAC1 PO
== END 2021-04-11 21:30 | disposition left against medical advice (07) ==
LOC: ED 19:19
DX: R10.9 Unspecified abdominal pain (principal); Z53.21 Procedure and treatment not carried out due to patient leaving prior to being seen by health care provider

== ENCOUNTER 2021-07-29 13:51 | Emergency (ER) | payer BC, OTHER ==
[~2021-07-29] VITALS: Ht 180.3 cm; Wt 95.3 kg
[2021-07-29] MEDS ORDERED: CLARITIN10 MG PO (14:51)
[2021-07-29] MEDS ORDERED: CLINDAMYCIN HC300 MG PO (15:33)
[2021-07-29] MEDS ORDERED: IBUPROFEN600 MG PO (15:33)
== END 2021-07-29 16:13 | disposition home or self-care (01) ==
LOC: ED 13:51
DX: K08.89 Other specified disorders of teeth and supporting structures (principal)

== ENCOUNTER 2021-08-20 19:40 | Emergency (ER) | payer BC, OTHER ==
[~2021-08-20] VITALS: Ht 180.3 cm; Wt 95.3 kg
[2021-08-20 20:00] LABS: BILIRUBIN Negative (Negative); BLOOD 2+ (Negative); CLARITY Clear (Clear); COLOR Dark Yellow (Yellow); GLUCOSE Negative (Negative); KETONE Negative (Negative); LEUKO ESTERASE Negative (Negative); NITRITE Negative (Negative); PH 6.5 (4.5-8.0)
[2021-08-20 20:25] LABS: BACTERIA TRACE; EPITHELIAL CELLS 0-2; HYALINE CAST 0-2; RBC 51-100 rbc/hpf (0-2)
[2021-08-20 20:30] LABS: BASO % 0.4 % (0.0-1.0); EOS # 0.3 10*3/uL (0.0-0.4); EOS % 2.5 % (1.0-4.0); HEMATOCRIT 40.1 % (42.0-52.0); LYMPH # 3.5 10*3/uL (1.3-4.4); LYMPH % 34.9 % (27.0-41.0); MEAN CELL VOLUME 92.2 fl (80.0-94.0); MEAN CORPUSCULAR HGB 32.9 pg (27.0-31.0); MEAN CORPUSCULAR HGB CONC 35.7 g/dl (33.0-37.0); MEAN PLATELET VOLUME 11.2 fl (9.6-12.3); MONO # 0.9 10*3/uL (0.1-1.0); MONO % 8.9 % (3.0-9.0); NEUT # 5.4 10*3/uL (2.3-7.9); NEUT % 53.1 % (47.0-73.0); PLATELET COUNT AUTOMATED 206 10*3/uL (130-400); RED BLOOD COUNT 4.35 10*6/uL (4.50-5.90); RED CELL DISTRI WIDTH 12.4 % (0-14.5); WHITE BLOOD COUNT 10.1 10*3/uL (4.8-10.8)
[2021-08-20 20:55] LABS: ALBUMIN 3.3 gm/dl (3.1-4.5); ALKALINE PHOSPHATASE 89 U/L (45-117); BUN 9 mg/dl (7-24); CHLORIDE 108 mmol/L (98-107); CREATININE 0.77 mg/dL (0.70-1.30); LIPASE 137 U/L (73-393); POTASSIUM 3.2 mmol/L (3.5-5.1); SGOT/AST 22 IU/L (3-35); SGPT/ALT 26 U/L (12-78); SODIUM 141 mmol/L (136-145); TOTAL PROTEIN 6.7 gm/dL (6.4-8.2)
== END 2021-08-20 21:21 | disposition home or self-care (01) ==
LOC: ED 19:40
PROVIDERS: Physician Assistant
DX: N23 Unspecified renal colic (principal); K21.9 Gastro-esophageal reflux disease without esophagitis; M19.90 Unspecified osteoarthritis, unspecified site; Z88.0 Allergy status to penicillin; Z79.899 Other long term (current) drug therapy; Z87.891 Personal history of nicotine dependence

== ENCOUNTER 2021-09-26 12:36 | Emergency (ER) | payer OTHER ==
[~2021-09-26] VITALS: Wt 95.3 kg
== END 2021-09-26 14:20 | disposition left against medical advice (07) ==
LOC: ED 12:36
DX: R10.9 Unspecified abdominal pain (principal); Z53.21 Procedure and treatment not carried out due to patient leaving prior to being seen by health care provider

== ENCOUNTER 2021-10-05 09:35 | Emergency (ER) | payer OTHER ==
[~2021-10-05] VITALS: Ht 180.3 cm; Wt 95.3 kg
[2021-10-05 10:15] LABS: BASO % 0.6 % (0.0-1.0); EOS # 0.2 10*3/uL (0.0-0.4); EOS % 2.8 % (1.0-4.0); HEMATOCRIT 37.6 % (42.0-52.0); LYMPH # 2.9 10*3/uL (1.3-4.4); LYMPH % 41.8 % (27.0-41.0); MEAN CELL VOLUME 94.9 fl (80.0-94.0); MEAN CORPUSCULAR HGB 32.8 pg (27.0-31.0); MEAN CORPUSCULAR HGB CONC 34.6 g/dl (33.0-37.0); MEAN PLATELET VOLUME 11.3 fl (9.6-12.3); MONO # 0.6 10*3/uL (0.1-1.0); MONO % 8.2 % (3.0-9.0); NEUT # 3.2 10*3/uL (2.3-7.9); NEUT % 46.5 % (47.0-73.0); PLATELET COUNT AUTOMATED 205 10*3/uL (130-400); RED BLOOD COUNT 3.96 10*6/uL (4.50-5.90); WHITE BLOOD COUNT 6.8 10*3/uL (4.8-10.8)
[2021-10-05 10:37] LABS: ALKALINE PHOSPHATASE 81 U/L (45-117); BUN 8 mg/dl (7-24); CHLORIDE 108 mmol/L (98-107); CREATININE 0.65 mg/dL (0.70-1.30); LIPASE 163 U/L (73-393); POTASSIUM 3.9 mmol/L (3.5-5.1); SGOT/AST 19 IU/L (3-35); SGPT/ALT 29 U/L (12-78); SODIUM 137 mmol/L (136-145)
[2021-10-05 10:50] LABS: BILIRUBIN Negative (Negative); BLOOD Negative (Negative); CLARITY Clear (Clear); COLOR Yellow (Yellow); GLUCOSE Negative (Negative); KETONE Negative (Negative); LEUKO ESTERASE Negative (Negative); NITRITE Negative (Negative); PH 7.5 (4.5-8.0); SPECIFIC GRAVITY <= 1.005 (1.001-1.030); UROBILINOGEN 0.2 E.U./dl (0.0-1.0)
[2021-10-05 11:02] LABS: RBC 0-2 rbc/hpf (0-2); WBC 0-2 wbc/hpf (0-5)
== END 2021-10-05 11:30 | disposition home or self-care (01) ==
LOC: ED 09:35
PROVIDERS: Emergency Medicine
DX: R10.32 Left lower quadrant pain (principal); R31.9 Hematuria, unspecified; Z88.0 Allergy status to penicillin; Z79.899 Other long term (current) drug therapy; Z98.890 Other specified postprocedural states; Z87.891 Personal history of nicotine dependence

== ENCOUNTER 2021-10-19 15:25 | Emergency (ER) | payer OTHER ==
[~2021-10-19] VITALS: Ht 180.3 cm; Wt 95.3 kg
[2021-10-19] MEDS ORDERED: LOTRISONE 0.05%15 GM T (16:11)
== END 2021-10-19 16:18 | disposition home or self-care (01) ==
LOC: ED 15:25
DX: R21 Rash and other nonspecific skin eruption (principal); Z88.0 Allergy status to penicillin; Z79.899 Other long term (current) drug therapy; Z98.890 Other specified postprocedural states

== ENCOUNTER → 2021-11-19 | Outpatient (CLI) | payer OTHER ==
[~2021-11-19] MED LIST changes: +LOTRISONE 0.05%15 GM T
== END | disposition home or self-care (01) ==
LOC: LAB 14:06
PROVIDERS: ATTEND Family Medicine
DX: R79.89 Other specified abnormal findings of blood chemistry (principal); R53.83 Other fatigue

== ENCOUNTER 2021-12-27 10:03 | Emergency (ER) | payer OTHER ==
[~2021-12-27] VITALS: Wt 90.7 kg
[2021-12-27 10:54] LABS: BASO % 0.3 % (0.0-1.0); EOS # 0.1 10*3/uL (0.0-0.4); EOS % 0.8 % (1.0-4.0); HEMATOCRIT 44.9 % (42.0-52.0); LYMPH # 2.4 10*3/uL (1.3-4.4); LYMPH % 18.3 % (27.0-41.0); MEAN CELL VOLUME 93.9 fl (80.0-94.0); MEAN CORPUSCULAR HGB 32.4 pg (27.0-31.0); MEAN CORPUSCULAR HGB CONC 34.5 g/dl (33.0-37.0); MEAN PLATELET VOLUME 11.2 fl (9.6-12.3); MONO # 0.9 10*3/uL (0.1-1.0); MONO % 7.1 % (3.0-9.0); NEUT # 9.7 10*3/uL (2.3-7.9); NEUT % 73.1 % (47.0-73.0); PLATELET COUNT AUTOMATED 212 10*3/uL (130-400); RED BLOOD COUNT 4.78 10*6/uL (4.50-5.90); RED CELL DISTRI WIDTH 12.4 % (0-14.5); WHITE BLOOD COUNT 13.2 10*3/uL (4.8-10.8)
[2021-12-27 11:05] LABS: ACT PARTIAL THROMBO TIME 27.3 SECONDS (20.0-32.1)
[2021-12-27 11:09] LABS: ALKALINE PHOSPHATASE 95 U/L (45-117); BUN 14 mg/dl (7-24); CHLORIDE 109 mmol/L (98-107); CREATININE 0.77 mg/dL (0.70-1.30); POTASSIUM 4.3 mmol/L (3.5-5.1); SGOT/AST 16 IU/L (3-35); SGPT/ALT 25 U/L (12-78); SODIUM 139 mmol/L (136-145); TOTAL PROTEIN 7.3 gm/dL (6.4-8.2)
[2021-12-27 11:11] LABS: LIPASE 119 U/L (73-393)
[2021-12-27] MEDS ORDERED: ZITHROMAX250 MG PO (14:20)
[2021-12-27] MEDS ORDERED: MEDROL DOSEPAK4 MG PO (14:20)
== END 2021-12-27 14:50 | disposition home or self-care (01) ==
LOC: ED 10:03
PROVIDERS: Emergency Medicine
DX: J40 Bronchitis, not specified as acute or chronic (principal); Z88.0 Allergy status to penicillin; Z79.899 Other long term (current) drug therapy; F17.200 Nicotine dependence, unspecified, uncomplicated

== ENCOUNTER 2022-01-14 16:30 | Emergency (ER) | payer OTHER ==
[~2022-01-14] VITALS: Wt 88.9 kg
[2022-01-14 17:38] LABS: BASO % 0.5 % (0.0-1.0); EOS # 0.2 10*3/uL (0.0-0.4); EOS % 2.6 % (1.0-4.0); HEMATOCRIT 40.5 % (42.0-52.0); LYMPH # 2.7 10*3/uL (1.3-4.4); LYMPH % 33.5 % (27.0-41.0); MEAN CELL VOLUME 94.8 fl (80.0-94.0); MEAN CORPUSCULAR HGB 32.3 pg (27.0-31.0); MEAN CORPUSCULAR HGB CONC 34.1 g/dl (33.0-37.0); MEAN PLATELET VOLUME 11.7 fl (9.6-12.3); MONO # 0.9 10*3/uL (0.1-1.0); MONO % 10.9 % (3.0-9.0); NEUT # 4.2 10*3/uL (2.3-7.9); NEUT % 52.2 % (47.0-73.0); PLATELET COUNT AUTOMATED 171 10*3/uL (130-400); RED BLOOD COUNT 4.27 10*6/uL (4.50-5.90); RED CELL DISTRI WIDTH 12.7 % (0-14.5)
[2022-01-14 17:38] LABS: BILIRUBIN Negative (Negative); BLOOD 1+ (Negative); CLARITY Clear (Clear); COLOR Yellow (Yellow); GLUCOSE Negative (Negative); KETONE Trace (Negative); LEUKO ESTERASE Negative (Negative); NITRITE Negative (Negative); SPECIFIC GRAVITY 1.025 (1.001-1.030)
[2022-01-14 17:52] LABS: ALKALINE PHOSPHATASE 83 U/L (45-117); BUN 9 mg/dl (7-24); CHLORIDE 111 mmol/L (98-107); CREATININE 0.82 mg/dL (0.70-1.30); POTASSIUM 3.9 mmol/L (3.5-5.1); SGOT/AST 16 IU/L (3-35); SGPT/ALT 19 U/L (12-78); SODIUM 142 mmol/L (136-145); TOTAL PROTEIN 6.6 gm/dL (6.4-8.2)
[2022-01-14 17:59] LABS: BACTERIA 1+; MUCOUS 1+; RBC 16-20 rbc/hpf (0-2); WBC 21-30 wbc/hpf (0-5)
[2022-01-14] MEDS ORDERED: FLOMAX0.4 MG PO (20:25)
[2022-01-14] MEDS ORDERED: NAPROSYN500 MG PO (20:25)
[2022-01-14] MEDS ORDERED: VIBRAMYCIN100 MG PO (20:25)
== END 2022-01-14 20:57 | disposition home or self-care (01) ==
LOC: ED 16:30
PROVIDERS: Nurse Practitioner Family
DX: N13.30 Unspecified hydronephrosis (principal); N20.0 Calculus of kidney; N39.0 Urinary tract infection, site not specified; Z88.0 Allergy status to penicillin; Z79.899 Other long term (current) drug therapy

== ENCOUNTER 2022-02-14 19:57 | Emergency (ER) | payer OTHER ==
[~2022-02-14] VITALS: Ht 180.3 cm; Wt 89.4 kg
== END 2022-02-14 22:21 | disposition home or self-care (01) ==
LOC: ED 19:57
DX: U07.1 COVID-19 (principal); E86.0 Dehydration; Z88.0 Allergy status to penicillin; Z79.899 Other long term (current) drug therapy; F17.200 Nicotine dependence, unspecified, uncomplicated

== ENCOUNTER → 2022-03-20 | Outpatient (CLI) | payer OTHER | END | disposition home or self-care (01) | LOC: RAD 09:52 | PROVIDERS: ATTEND Family Medicine | DX: M25.562 Pain in left knee (principal) ==

== ENCOUNTER 2022-04-25 16:49 | Emergency (ER) | payer OTHER ==
[~2022-04-25] VITALS: Ht 180.3 cm; Wt 93.4 kg
[2022-04-25] MEDS ORDERED: VIBRAMYCIN100 MG PO (17:04)
== END 2022-04-25 18:09 | disposition home or self-care (01) ==
LOC: ED 16:49
DX: L02.11 Cutaneous abscess of neck (principal); Z87.891 Personal history of nicotine dependence; Z98.890 Other specified postprocedural states; Z79.899 Other long term (current) drug therapy; Z88.0 Allergy status to penicillin

== ENCOUNTER 2022-07-06 10:45 | Emergency (ER) | payer OTHER ==
[~2022-07-06] VITALS: Ht 180.3 cm; Wt 95.3 kg
[2022-07-06 12:26] LABS: BILIRUBIN Negative (Negative); BLOOD Negative (Negative); CLARITY Clear (Clear); COLOR Dark Yellow (Yellow); GLUCOSE Negative (Negative); KETONE Negative (Negative); LEUKO ESTERASE Negative (Negative); NITRITE Negative (Negative); PH 5.5 (4.5-8.0); UROBILINOGEN 0.2 E.U./dl (0.0-1.0)
[2022-07-06 12:50] LABS: BACTERIA TRACE; EPITHELIAL CELLS 0-2; MUCOUS 1+
[2022-07-06] MEDS ORDERED: CLOTRIMAZOLE45 G1 T (13:14)
[2022-07-06] MEDS ORDERED: SEPTDS PO (13:14)
== END 2022-07-06 13:58 | disposition home or self-care (01) ==
LOC: ED 10:45
PROVIDERS: Physician Assistant
DX: R30.0 Dysuria (principal); Z88.0 Allergy status to penicillin; Z98.52 Vasectomy status; N48.89 Other specified disorders of penis; F17.200 Nicotine dependence, unspecified, uncomplicated

== ENCOUNTER 2022-08-03 04:53 | Emergency (ER) | payer OTHER ==
[~2022-08-03] VITALS: Ht 180.3 cm; Wt 98.7 kg
[~2022-08-03 04:53] MED LIST changes: +CLOTRIMAZOLE45 G1 T
[2022-08-03 05:42] LABS: ALKALINE PHOSPHATASE 77 U/L (46-116); BUN 8 mg/dl (9-23); CHLORIDE 106 mmol/L (98-107); POTASSIUM 3.9 mmol/L (3.4-5.1); SGPT/ALT 14 U/L (10-49); TOTAL PROTEIN 6.7 gm/dL (6.0-8.0)
[2022-08-03 05:59] LABS: BASO # 0.1 10*3/uL (0.0-0.1); BASO % 0.4 % (0.0-1.0); EOS # 0.3 10*3/uL (0.0-0.4); EOS % 2.5 % (1.0-4.0); HEMATOCRIT 41.8 % (42.0-52.0); LYMPH # 2.7 10*3/uL (1.3-4.4); LYMPH % 24.5 % (27.0-41.0); MEAN CELL VOLUME 96.3 fl (80.0-94.0); MEAN CORPUSCULAR HGB 33.4 pg (27.0-31.0); MEAN CORPUSCULAR HGB CONC 34.7 g/dl (33.0-37.0); MEAN PLATELET VOLUME 11.7 fl (9.6-12.3); MONO # 0.9 10*3/uL (0.1-1.0); MONO % 8.3 % (3.0-9.0); NEUT # 7.1 10*3/uL (2.3-7.9); NEUT % 63.4 % (47.0-73.0); PLATELET COUNT AUTOMATED 200 10*3/uL (130-400); RED BLOOD COUNT 4.34 10*6/uL (4.50-5.90); RED CELL DISTRI WIDTH 12.4 % (0-14.5); WHITE BLOOD COUNT 11.2 10*3/uL (4.8-10.8)
[2022-08-03 06:09] LABS: ACT PARTIAL THROMBO TIME 27.6 SECONDS (20.0-32.1); INTERNATIONAL NORM RATIO 0.9 (2.0-3.5)
[2022-08-03] MEDS ORDERED: CLEOCIN HCL300 MG PO (08:16)
== END 2022-08-03 08:19 | disposition home or self-care (01) ==
LOC: ED 04:53
PROVIDERS: Family Medicine
DX: K04.7 Periapical abscess without sinus (principal); Z88.0 Allergy status to penicillin; Z90.89 Acquired absence of other organs; F10.10 Alcohol abuse, uncomplicated

== ENCOUNTER 2022-10-02 16:41 | Emergency (ER) | payer OTHER ==
[~2022-10-02] VITALS: Ht 180.3 cm; Wt 97.5 kg
[~2022-10-02 16:41] MED LIST changes: +CLEOCIN HCL300 MG PO
[2022-10-02 17:29] LABS: BASO # 0.1 10*3/uL (0.0-0.1); BASO % 0.7 % (0.0-1.0); EOS # 0.3 10*3/uL (0.0-0.4); EOS % 3.6 % (1.0-4.0); HEMATOCRIT 43.4 % (42.0-52.0); LYMPH # 2.2 10*3/uL (1.3-4.4); MEAN CELL VOLUME 97.1 fl (80.0-94.0); MEAN CORPUSCULAR HGB 33.1 pg (27.0-31.0); MEAN CORPUSCULAR HGB CONC 34.1 g/dl (33.0-37.0); MONO # 0.7 10*3/uL (0.1-1.0); MONO % 10.2 % (3.0-9.0); NEUT # 3.7 10*3/uL (2.3-7.9); NEUT % 53.4 % (47.0-73.0); PLATELET COUNT AUTOMATED 237 10*3/uL (130-400); RED BLOOD COUNT 4.47 10*6/uL (4.50-5.90); RED CELL DISTRI WIDTH 12.9 % (0-14.5)
[2022-10-02 17:46] LABS: ALKALINE PHOSPHATASE 71 U/L (46-116); BUN 7 mg/dl (9-23); CHLORIDE 103 mmol/L (98-107); POTASSIUM 4.1 mmol/L (3.4-5.1); SGPT/ALT 20 U/L (10-49); TOTAL PROTEIN 7.1 gm/dL (6.0-8.0)
[2022-10-02] MEDS ORDERED: CLINDAMYCIN HC300 MG PO ×2 (17:57→18:02)
== END 2022-10-02 18:15 | disposition home or self-care (01) ==
LOC: ED 16:41
PROVIDERS: Physician Assistant
DX: K08.89 Other specified disorders of teeth and supporting structures (principal); Z88.0 Allergy status to penicillin; Z79.899 Other long term (current) drug therapy; Z98.890 Other specified postprocedural states; Z87.891 Personal history of nicotine dependence

== ENCOUNTER 2022-10-03 11:45 | Emergency (ER) | payer OTHER ==
[~2022-10-03] VITALS: Ht 180.3 cm; Wt 95.3 kg
== END 2022-10-03 12:15 | disposition home or self-care (01) ==
LOC: ED 11:45
DX: K08.89 Other specified disorders of teeth and supporting structures (principal); Z88.0 Allergy status to penicillin; Z79.899 Other long term (current) drug therapy; Z98.890 Other specified postprocedural states; Z87.891 Personal history of nicotine dependence

== ENCOUNTER 2022-10-30 19:52 | Emergency (ER) | payer OTHER ==
[~2022-10-30] VITALS: Ht 180.3 cm; Wt 93.0 kg
[2022-10-30] MEDS ORDERED: NAPROSYN500 MG PO (21:55)
== END 2022-10-30 22:38 | disposition home or self-care (01) ==
LOC: ED 19:52
DX: M54.50 Low back pain, unspecified (principal); Z88.0 Allergy status to penicillin; Z79.899 Other long term (current) drug therapy; Z87.891 Personal history of nicotine dependence

== ENCOUNTER 2022-11-10 18:05 | Emergency (ER) | payer OTHER ==
[~2022-11-10] VITALS: Ht 180.3 cm; Wt 92.5 kg
[2022-11-10 18:45] LABS: BASO % 0.6 % (0.0-1.0); EOS # 0.3 10*3/uL (0.0-0.4); EOS % 3.8 % (1.0-4.0); HEMATOCRIT 40.1 % (42.0-52.0); LYMPH # 2.4 10*3/uL (1.3-4.4); LYMPH % 35.5 % (27.0-41.0); MEAN CORPUSCULAR HGB 32.8 pg (27.0-31.0); MEAN CORPUSCULAR HGB CONC 33.4 g/dl (33.0-37.0); MEAN PLATELET VOLUME 11.5 fl (9.6-12.3); MONO # 0.4 10*3/uL (0.1-1.0); MONO % 6.4 % (3.0-9.0); NEUT # 3.7 10*3/uL (2.3-7.9); NEUT % 53.6 % (47.0-73.0); PLATELET COUNT AUTOMATED 180 10*3/uL (130-400); RED BLOOD COUNT 4.09 10*6/uL (4.50-5.90); RED CELL DISTRI WIDTH 12.9 % (0-14.5); WHITE BLOOD COUNT 6.9 10*3/uL (4.8-10.8)
[2022-11-10 19:01] LABS: ALKALINE PHOSPHATASE 75 U/L (46-116); BUN 9 mg/dl (9-23); CHLORIDE 106 mmol/L (98-107); POTASSIUM 3.6 mmol/L (3.4-5.1); SGPT/ALT 15 U/L (10-49); TOTAL PROTEIN 6.3 gm/dL (6.0-8.0)
== END 2022-11-10 21:17 | disposition home or self-care (01) ==
LOC: ED 18:05
PROVIDERS: Physician Assistant
DX: R07.89 Other chest pain (principal); F32.A Depression, unspecified; K21.9 Gastro-esophageal reflux disease without esophagitis; M19.90 Unspecified osteoarthritis, unspecified site; Z88.0 Allergy status to penicillin; Z98.890 Other specified postprocedural states; Z87.891 Personal history of nicotine dependence

== ENCOUNTER 2023-01-04 10:27 | Emergency (ER) | payer OTHER ==
[~2023-01-04] VITALS: Ht 180.3 cm; Wt 93.0 kg
[2023-01-04] MEDS ORDERED: CELECOXIB200 M1 PO (10:41)
[2023-01-04] MEDS ORDERED: SINGULAIR10 M1 PO (10:42)
[2023-01-04] MEDS ORDERED: CETIRIZINE HYDR10 MG PO (10:44)
[2023-01-04] MEDS ORDERED: CODEINE-GUAIFE120 M1 PO (12:51)
[2023-01-04] MEDS ORDERED: ZITHROMAX250 MG PO (12:51)
== END 2023-01-04 13:13 | disposition home or self-care (01) ==
LOC: ED 10:27
DX: J06.9 Acute upper respiratory infection, unspecified (principal); Z20.822 Contact with and (suspected) exposure to COVID-19; J40 Bronchitis, not specified as acute or chronic; R19.7 Diarrhea, unspecified; R43.8 Other disturbances of smell and taste; F17.200 Nicotine dependence, unspecified, uncomplicated; Z88.0 Allergy status to penicillin; Z79.899 Other long term (current) drug therapy

== ENCOUNTER 2023-02-02 13:05 | Emergency (ER) | payer OTHER ==
[~2023-02-02] VITALS: Ht 180.3 cm; Wt 93.0 kg
[~2023-02-02 13:05] MED LIST changes: +CELECOXIB200 M1 PO; +CETIRIZINE HYDR10 MG PO; +CODEINE-GUAIFE120 M1 PO; +SINGULAIR10 M1 PO
[2023-02-02] MEDS ORDERED: NAPROSYN500 MG PO (13:18)
== END 2023-02-02 13:32 | disposition home or self-care (01) ==
LOC: ED 13:05
DX: S46.911A Strain of unspecified muscle, fascia and tendon at shoulder and upper arm level, right arm, initial encounter (principal); F17.200 Nicotine dependence, unspecified, uncomplicated; Z88.0 Allergy status to penicillin; Z79.2 Long term (current) use of antibiotics; Z79.899 Other long term (current) drug therapy; Z90.89 Acquired absence of other organs; Z98.890 Other specified postprocedural states

== ENCOUNTER 2023-02-28 20:56 | Emergency (ER) | payer OTHER ==
[~2023-02-28] VITALS: Ht 180.3 cm; Wt 95.3 kg
== END 2023-02-28 22:50 | disposition home or self-care (01) ==
LOC: ED 20:56
DX: S56.912A Strain of unspecified muscles, fascia and tendons at forearm level, left arm, initial encounter (principal); F32.A Depression, unspecified; F17.200 Nicotine dependence, unspecified, uncomplicated; Z88.0 Allergy status to penicillin; Z79.899 Other long term (current) drug therapy; Z87.442 Personal history of urinary calculi; Z98.890 Other specified postprocedural states; V89.2XXA Person injured in unspecified motor-vehicle accident, traffic, initial encounter; Y93.I9 Activity, other involving external motion; Y92.488 Other paved roadways as the place of occurrence of the external cause; Y99.8 Other external cause status

== ENCOUNTER 2023-04-07 18:22 | Emergency (ER) | payer OTHER | END 2023-04-07 19:46 | disposition left against medical advice (07) | LOC: ED 18:22 | DX: R10.31 Right lower quadrant pain (principal); Z53.21 Procedure and treatment not carried out due to patient leaving prior to being seen by health care provider ==

== ENCOUNTER 2023-04-08 17:02 | Emergency (ER) | payer OTHER ==
[~2023-04-08] VITALS: Ht 180.3 cm; Wt 93.0 kg
[2023-04-08 19:10] LABS: BILIRUBIN Negative (Negative); BLOOD Negative (Negative); CLARITY Clear (Clear); COLOR Dark Yellow (Yellow); GLUCOSE Negative (Negative); KETONE Negative (Negative); LEUKO ESTERASE Negative (Negative); NITRITE Negative (Negative); PH 5.5 (4.5-8.0); SPECIFIC GRAVITY 1.025 (1.001-1.030)
[2023-04-08 19:18] LABS: BASO % 0.4 % (0.0-1.0); EOS # 0.3 10*3/uL (0.0-0.4); EOS % 2.6 % (1.0-4.0); HEMATOCRIT 40.3 % (42.0-52.0); LYMPH % 29.8 % (27.0-41.0); MEAN CELL VOLUME 94.2 fl (80.0-94.0); MEAN CORPUSCULAR HGB 33.4 pg (27.0-31.0); MEAN CORPUSCULAR HGB CONC 35.5 g/dl (33.0-37.0); MEAN PLATELET VOLUME 11.4 fl (9.6-12.3); MONO # 0.8 10*3/uL (0.1-1.0); NEUT # 5.9 10*3/uL (2.3-7.9); PLATELET COUNT AUTOMATED 209 10*3/uL (130-400); RED BLOOD COUNT 4.28 10*6/uL (4.50-5.90); RED CELL DISTRI WIDTH 12.8 % (0-14.5)
[2023-04-08 19:25] LABS: BACTERIA TRACE; RBC 0-2 rbc/hpf (0-2); WBC 0-2 wbc/hpf (0-5)
[2023-04-08 19:46] LABS: ALKALINE PHOSPHATASE 81 U/L (46-116); BUN 9 mg/dl (9-23); CHLORIDE 109 mmol/L (98-107); LIPASE 45 U/L (12-53); POTASSIUM 3.8 mmol/L (3.4-5.1); SGPT/ALT 16 U/L (10-49); TOTAL PROTEIN 6.7 gm/dL (6.0-8.0)
== END 2023-04-08 21:17 | disposition home or self-care (01) ==
LOC: ED 17:02
PROVIDERS: Emergency Medicine
DX: N50.9 Disorder of male genital organs, unspecified (principal); R11.0 Nausea; F32.A Depression, unspecified; K21.9 Gastro-esophageal reflux disease without esophagitis; M19.90 Unspecified osteoarthritis, unspecified site; Z87.442 Personal history of urinary calculi; Z88.0 Allergy status to penicillin; Z98.890 Other specified postprocedural states; F17.200 Nicotine dependence, unspecified, uncomplicated

== ENCOUNTER 2023-07-20 16:21 | Emergency (ER) | payer SELFPAY ==
[~2023-07-20] VITALS: Ht 335.2 cm; Wt 93.0 kg
[2023-07-20] MEDS ORDERED: CELEXA40 MG PO (16:40)
[2023-07-20 17:06] LABS: BASO # 0.1 10*3/uL (0.0-0.1); BASO % 0.5 % (0.0-1.0); EOS # 0.3 10*3/uL (0.0-0.4); EOS % 2.4 % (1.0-4.0); HEMATOCRIT 42.5 % (42.0-52.0); LYMPH # 2.9 10*3/uL (1.3-4.4); LYMPH % 27.5 % (27.0-41.0); MEAN CELL VOLUME 95.7 fl (80.0-94.0); MEAN CORPUSCULAR HGB CONC 33.4 g/dl (33.0-37.0); MEAN PLATELET VOLUME 10.7 fl (9.6-12.3); MONO # 0.9 10*3/uL (0.1-1.0); MONO % 8.6 % (3.0-9.0); NEUT # 6.5 10*3/uL (2.3-7.9); NEUT % 60.9 % (47.0-73.0); PLATELET COUNT AUTOMATED 201 10*3/uL (130-400); RED BLOOD COUNT 4.44 10*6/uL (4.50-5.90); RED CELL DISTRI WIDTH 12.7 % (0-14.5); WHITE BLOOD COUNT 10.7 10*3/uL (4.8-10.8)
[2023-07-20 17:34] LABS: ALKALINE PHOSPHATASE 74 U/L (46-116); BUN 7 mg/dl (9-23); CHLORIDE 107 mmol/L (98-107); POTASSIUM 3.5 mmol/L (3.4-5.1); SGPT/ALT 20 U/L (5-49); TOTAL PROTEIN 6.7 gm/dL (6.0-8.0)
[2023-07-20] MEDS ORDERED: PREDNISONE50 MG PO (18:17)
[2023-07-20] MEDS ORDERED: ZITHROMAX500 MG PO (18:17)
== END 2023-07-20 19:58 | disposition home or self-care (01) ==
LOC: ED 16:21
PROVIDERS: Nurse Practitioner Family
DX: J40 Bronchitis, not specified as acute or chronic (principal); F32.A Depression, unspecified; K21.9 Gastro-esophageal reflux disease without esophagitis; M19.90 Unspecified osteoarthritis, unspecified site; Z88.0 Allergy status to penicillin; Z98.890 Other specified postprocedural states; F17.210 Nicotine dependence, cigarettes, uncomplicated; Z20.822 Contact with and (suspected) exposure to COVID-19

== ENCOUNTER 2023-07-31 17:36 | Emergency (ER) | payer SELFPAY ==
[~2023-07-31] VITALS: Wt 95.3 kg
[~2023-07-31 17:36] MED LIST changes: +CELEXA40 MG PO; +ZITHROMAX500 MG PO
[2023-07-31 18:16] LABS: BILIRUBIN 1+ (Negative); BLOOD 3+ (Negative); CLARITY Clear (Clear); COLOR Dark Yellow (Yellow); GLUCOSE Negative (Negative); KETONE Trace (Negative); LEUKO ESTERASE Negative (Negative); NITRITE Negative (Negative); PH 5.5 (4.5-8.0); SPECIFIC GRAVITY 1.025 (1.001-1.030)
[2023-07-31 18:27] LABS: BACTERIA 1+; MUCOUS 2+; RBC 51-100 rbc/hpf (0-2)
[2023-07-31 19:51] LABS: BASO # 0.1 10*3/uL (0.0-0.1); BASO % 0.5 % (0.0-1.0); EOS # 0.1 10*3/uL (0.0-0.4); EOS % 0.6 % (1.0-4.0); HEMATOCRIT 43.9 % (42.0-52.0); LYMPH # 1.3 10*3/uL (1.3-4.4); LYMPH % 11.7 % (27.0-41.0); MEAN CELL VOLUME 95.4 fl (80.0-94.0); MEAN CORPUSCULAR HGB 32.4 pg (27.0-31.0); MEAN CORPUSCULAR HGB CONC 33.9 g/dl (33.0-37.0); MONO # 1.4 10*3/uL (0.1-1.0); MONO % 12.7 % (3.0-9.0); NEUT # 8.1 10*3/uL (2.3-7.9); NEUT % 74.1 % (47.0-73.0); PLATELET COUNT AUTOMATED 187 10*3/uL (130-400)
[2023-07-31 20:16] LABS: ALKALINE PHOSPHATASE 74 U/L (46-116); BUN 11 mg/dl (9-23); CHLORIDE 107 mmol/L (98-107); POTASSIUM 4.1 mmol/L (3.4-5.1); SGPT/ALT 23 U/L (5-49); TOTAL PROTEIN 6.9 gm/dL (6.0-8.0)
[2023-07-31] MEDS ORDERED: SEPTDS PO (21:13)
[2023-07-31] MEDS ORDERED: NAPROSYN500 MG PO (21:13)
[2023-07-31] MEDS ORDERED: HYDROCODONE-AC1 EAC1 PO (21:13)
[2023-07-31] MEDS ORDERED: FLOMAX0.4 MG PO (21:13)
== END 2023-07-31 21:30 | disposition home or self-care (01) ==
LOC: ED 17:36
PROVIDERS: Emergency Medicine; Nurse Practitioner Family
DX: N20.0 Calculus of kidney (principal); K21.9 Gastro-esophageal reflux disease without esophagitis; F32.A Depression, unspecified; M19.90 Unspecified osteoarthritis, unspecified site; Z88.0 Allergy status to penicillin; Z98.890 Other specified postprocedural states; F17.200 Nicotine dependence, unspecified, uncomplicated

== ENCOUNTER 2023-12-30 07:22 | Emergency (ER) | payer OTHER ==
[~2023-12-30] VITALS: Ht 180.3 cm; Wt 94.3 kg
[~2023-12-30 07:22] MED LIST changes: +MELOXICAM15 MG PO
[2023-12-30] MEDS ORDERED: ASPERCREME LID1 EACH T ×2 (08:14→09:34)
[2023-12-30] MEDS ORDERED: TYLENOL EXTRA500 MG PO ×2 (08:14→09:34)
[2023-12-30] MEDS ORDERED: IBUPROFEN400 MG PO ×2 (08:14→09:34)
[2023-12-30] MEDS ORDERED: MORPHINE SULFAT15 MG PO ×2 (08:15→09:34)
[2023-12-30] MEDS ORDERED: TRAMADOL HCL50 MG PO (10:06)
== END 2023-12-30 08:33 ==
LOC: ED 07:22
DX: M54.50 Low back pain, unspecified (principal); G89.29 Other chronic pain; F17.200 Nicotine dependence, unspecified, uncomplicated; Z88.0 Allergy status to penicillin; Z79.899 Other long term (current) drug therapy; Z87.442 Personal history of urinary calculi; Z98.890 Other specified postprocedural states

== ENCOUNTER 2024-02-21 20:12 | Emergency (ER) | payer OTHER ==
[~2024-02-21] VITALS: Ht 180.3 cm; Wt 93.0 kg
[~2024-02-21 20:12] MED LIST changes: +ASPERCREME LID1 EACH T; +IBUPROFEN400 MG PO; +MORPHINE SULFAT15 MG PO; +TYLENOL EXTRA500 MG PO
[2024-02-21] MEDS ORDERED: Acetaminophen/Hydrocodone 5 MG/325 MG TABLET PO ONE (20:45)
[2024-02-21] MEDS ORDERED: TRAMADOL HCL50 MG PO (22:22)
== END 2024-02-21 22:53 | disposition home or self-care (01) ==
LOC: ED 20:12
DX: S20.211A Contusion of right front wall of thorax, initial encounter (principal); G43.909 Migraine, unspecified, not intractable, without status migrainosus; F32.A Depression, unspecified; K21.9 Gastro-esophageal reflux disease without esophagitis; M19.90 Unspecified osteoarthritis, unspecified site; F17.200 Nicotine dependence, unspecified, uncomplicated; Z87.442 Personal history of urinary calculi; Z88.0 Allergy status to penicillin; Z98.890 Other specified postprocedural states; W01.0XXA Fall on same level from slipping, tripping and stumbling without subsequent striking against object, initial encounter; Y93.89 Activity, other specified; Y92.009 Unspecified place in unspecified non-institutional (private) residence as the place of occurrence of the external cause; Y99.8 Other external cause status

== ENCOUNTER 2024-03-02 07:43 | Emergency (ER) | payer OTHER ==
[~2024-03-02] VITALS: Ht 180.3 cm; Wt 95.3 kg
[2024-03-02] MEDS ORDERED: Ketorolac Tromethamine 30 MG/ML VIAL IM ONE (07:55)
[2024-03-02] MEDS ORDERED: METHOCARBAMOL500 M1 PO (09:01)
== END 2024-03-02 08:53 | disposition home or self-care (01) ==
LOC: ED 07:43
DX: S20.211A Contusion of right front wall of thorax, initial encounter (principal); F17.200 Nicotine dependence, unspecified, uncomplicated; Z88.0 Allergy status to penicillin; Z79.899 Other long term (current) drug therapy; Z98.890 Other specified postprocedural states; W18.39XA Other fall on same level, initial encounter; Y93.89 Activity, other specified; Y92.89 Other specified places as the place of occurrence of the external cause; Y99.8 Other external cause status

== ENCOUNTER 2024-03-06 20:28 | Emergency (ER) | payer OTHER ==
[~2024-03-06] VITALS: Ht 180.3 cm; Wt 95.3 kg
[~2024-03-06 20:28] MED LIST changes: +METHOCARBAMOL500 M1 PO
[2024-03-06 21:06] LABS: BASO # 0.1 10*3/uL (0.0-0.1); BASO % 0.6 % (0.0-1.0); EOS # 0.3 10*3/uL (0.0-0.4); EOS % 4.3 % (1.0-4.0); HEMATOCRIT 40.1 % (42.0-52.0); LYMPH # 3.6 10*3/uL (1.3-4.4); LYMPH % 46.3 % (27.0-41.0); MEAN CELL VOLUME 96.9 fl (80.0-94.0); MEAN CORPUSCULAR HGB 32.6 pg (27.0-31.0); MEAN CORPUSCULAR HGB CONC 33.7 g/dl (33.0-37.0); MEAN PLATELET VOLUME 11.4 fl (9.6-12.3); MONO # 0.8 10*3/uL (0.1-1.0); MONO % 10.7 % (3.0-9.0); NEUT # 2.9 10*3/uL (2.3-7.9); PLATELET COUNT AUTOMATED 210 10*3/uL (130-400); RED BLOOD COUNT 4.14 10*6/uL (4.50-5.90); WHITE BLOOD COUNT 7.8 10*3/uL (4.8-10.8)
[2024-03-06 21:28] LABS: ALKALINE PHOSPHATASE 81 U/L (46-116); BUN 9 mg/dl (9-23); CHLORIDE 109 mmol/L (98-107); POTASSIUM 3.9 mmol/L (3.4-5.1); SGPT/ALT 17 U/L (5-49); TOTAL PROTEIN 6.4 gm/dL (6.0-8.0)
[2024-03-06] MEDS ORDERED: Albuterol Sulf/Ipratropium 3 ML VIAL NEB ONE (22:05)
[2024-03-07] MEDS ORDERED: VIBRAMYCIN100 MG PO (00:32)
[2024-03-07] MEDS ORDERED: Doxycycline Hyclate 100 MG CAP PO ONE (00:35)
[2024-03-07] MEDS ORDERED: ALBUTEROL 8 GM INHALER INH ONE (00:35)
== END 2024-03-07 00:38 | disposition home or self-care (01) ==
LOC: ED 20:28
PROVIDERS: Emergency Medicine
DX: J40 Bronchitis, not specified as acute or chronic (principal); J98.01 Acute bronchospasm; F32.A Depression, unspecified; K21.9 Gastro-esophageal reflux disease without esophagitis; M19.90 Unspecified osteoarthritis, unspecified site; F17.200 Nicotine dependence, unspecified, uncomplicated; Z88.0 Allergy status to penicillin; Z87.442 Personal history of urinary calculi; Z98.890 Other specified postprocedural states

== ENCOUNTER → 2024-07-16 | Outpatient (CLI) | payer OTHER | END | disposition home or self-care (01) | LOC: LAB 09:08 | PROVIDERS: ATTEND Family Medicine | DX: R79.89 Other specified abnormal findings of blood chemistry (principal) ==

== ENCOUNTER 2024-07-18 18:22 | Emergency (ER) | payer OTHER ==
[~2024-07-18] VITALS: Ht 180.3 cm; Wt 97.5 kg
[2024-07-18] MEDS ORDERED: CITALOPRAM 20 MG TAB PO ONE (18:45)
[2024-07-18] MEDS ORDERED: Metoclopramide Hydrochloride 10 MG/2 ML VIAL IV ONE (18:50)
[2024-07-18] MEDS ORDERED: diphenhydrAMINE hydrochloride 50 MG/ML VIAL IV ONE (18:50)
[2024-07-18] MEDS ORDERED: SODIUM CHLORIDE 0.9% 1,000 ML IV ONE (18:50)
[2024-07-18] MEDS ORDERED: Ketorolac Tromethamine 15 MG/ML VIAL IV ONE (18:50)
[2024-07-18] MEDS ORDERED: CELEXA40 MG PO (19:00)
[2024-07-18 19:16] LABS: BASO % 0.4 % (0.0-1.0); EOS # 0.3 10*3/uL (0.0-0.4); EOS % 4.7 % (1.0-4.0); HEMATOCRIT 39.4 % (42.0-52.0); MEAN CELL VOLUME 93.8 fl (80.0-94.0); MEAN CORPUSCULAR HGB 32.4 pg (27.0-31.0); MEAN CORPUSCULAR HGB CONC 34.5 g/dl (33.0-37.0); MEAN PLATELET VOLUME 11.3 fl (9.6-12.3); MONO # 0.7 10*3/uL (0.1-1.0); MONO % 10.5 % (3.0-9.0); NEUT # 3.1 10*3/uL (2.3-7.9); NEUT % 45.5 % (47.0-73.0); PLATELET COUNT AUTOMATED 217 10*3/uL (130-400); RED CELL DISTRI WIDTH 12.6 % (0-14.5); WHITE BLOOD COUNT 6.9 10*3/uL (4.8-10.8)
[2024-07-18 20:47] LABS: BUN 9 mg/dl (9-23); CHLORIDE 109 mmol/L (98-107); POTASSIUM 3.9 mmol/L (3.4-5.1)
== END 2024-07-18 20:17 | disposition home or self-care (01) ==
LOC: ED 18:22
PROVIDERS: Nurse Practitioner Family
DX: F15.23 Other stimulant dependence with withdrawal (principal); R51.9 Headache, unspecified; R42 Dizziness and giddiness; G90.81 Serotonin syndrome; F32.A Depression, unspecified; K21.9 Gastro-esophageal reflux disease without esophagitis; M19.90 Unspecified osteoarthritis, unspecified site; Z87.442 Personal history of urinary calculi; F17.290 Nicotine dependence, other tobacco product, uncomplicated; Z88.0 Allergy status to penicillin; Z98.890 Other specified postprocedural states

== ENCOUNTER 2024-10-05 21:35 | Emergency (ER) | payer OTHER ==
[~2024-10-05] VITALS: Ht 180.3 cm; Wt 95.3 kg
[2024-10-05] MEDS ORDERED: CYCLOBENZAPRINE10 MG PO (22:12)
[2024-10-05] MEDS ORDERED: Acetaminophen/Hydrocodone 5 MG/325 MG TABLET PO ONE (22:15)
== END 2024-10-05 22:33 | disposition home or self-care (01) ==
LOC: ED 21:35
DX: S39.012A Strain of muscle, fascia and tendon of lower back, initial encounter (principal); F32.A Depression, unspecified; K21.9 Gastro-esophageal reflux disease without esophagitis; M19.90 Unspecified osteoarthritis, unspecified site; F17.200 Nicotine dependence, unspecified, uncomplicated; Z88.0 Allergy status to penicillin; Z98.890 Other specified postprocedural states; X50.0XXA Overexertion from strenuous movement or load, initial encounter; Y93.89 Activity, other specified; Y92.89 Other specified places as the place of occurrence of the external cause; Y99.0 Civilian activity done for income or pay

== ENCOUNTER 2025-03-09 10:13 | Emergency (ER) | payer OTHER ==
[~2025-03-09] VITALS: Ht 180.3 cm; Wt 95.3 kg
== END 2025-03-09 12:31 | disposition home or self-care (01) ==
LOC: ED 10:13
DX: M25.551 Pain in right hip (principal); F17.200 Nicotine dependence, unspecified, uncomplicated; Z88.0 Allergy status to penicillin; Z79.899 Other long term (current) drug therapy; Z98.890 Other specified postprocedural states; X58.XXXA Exposure to other specified factors, initial encounter; Y93.89 Activity, other specified; Y92.89 Other specified places as the place of occurrence of the external cause; Y99.8 Other external cause status

== ENCOUNTER 2025-06-18 19:58 | Emergency (ER) | payer OTHER ==
[~2025-06-18] VITALS: Ht 180.3 cm; Wt 95.3 kg
[2025-06-18 20:28] LABS: BASO # 0.1 10*3/uL (0.0-0.1); BASO % 0.8 % (0.0-1.0); EOS # 0.3 10*3/uL (0.0-0.4); EOS % 5.2 % (1.0-4.0); MEAN CELL VOLUME 94.2 fl (80.0-94.0); MEAN CORPUSCULAR HGB 32.7 pg (27.0-31.0); MEAN PLATELET VOLUME 10.8 fl (9.6-12.3); MONO # 0.6 10*3/uL (0.1-1.0); MONO % 9.8 % (3.0-9.0); NEUT # 2.2 10*3/uL (2.3-7.9); NEUT % 35.2 % (47.0-73.0); NUCLEATED RED BLOOD CELL 0.0 % (0.0-0.0); NUCLEATED RED BLOOD CELL 0.0 10*3/uL (0.0-0.0); PLATELET COUNT AUTOMATED 218 10*3/uL (130-400); RED CELL DISTRI WIDTH 12.4 % (0-14.5)
[2025-06-18 20:45] LABS: BUN 10 mg/dl (9-23)
[2025-06-18] MEDS ORDERED: PREDNISONE20 M1 PO (21:21)
== END 2025-06-18 21:25 | disposition home or self-care (01) ==
LOC: ED 19:58
PROVIDERS: Nurse Practitioner Family
DX: S29.011A Strain of muscle and tendon of front wall of thorax, initial encounter (principal); M94.0 Chondrocostal junction syndrome [Tietze]; K21.9 Gastro-esophageal reflux disease without esophagitis; F32.A Depression, unspecified; M19.90 Unspecified osteoarthritis, unspecified site; Z87.440 Personal history of urinary (tract) infections; Z88.0 Allergy status to penicillin; X58.XXXA Exposure to other specified factors, initial encounter; Y93.89 Activity, other specified; Y92.89 Other specified places as the place of occurrence of the external cause; Y99.8 Other external cause status